=== PATIENT | female | born 1995 | race Caucasian/White ===

== ENCOUNTER 2016-04-18 08:00 | Observation (INO) | payer MEDICAID ==
[~2016-04-18] VITALS: Ht 160 cm; Wt 65.3 kg
[2016-04-18] MEDS ORDERED: PRENATAL VITAMI1 TA2 PO (08:33)
[2016-04-18] MEDS ORDERED: INFLUENZA VIRUS VACCINE QUAD 0.5 ML SYR IMVAC SCH (10:00)
== END 2016-04-18 10:45 | disposition home or self-care (01) ==
LOC: MLD 08:00
PROVIDERS: ADMIT Obstetrics & Gynecology; ATTEND Obstetrics & Gynecology
DX: O46.92 Antepartum hemorrhage, unspecified, second trimester (principal); Z3A.26 26 weeks gestation of pregnancy
CPT/HCPCS: 76805; G0378; Q0092